=== PATIENT | female | born 1995 | race Caucasian/White ===

== ENCOUNTER 2017-06-10 11:05 | Emergency (ER) | payer MEDICAID ==
[~2017-06-10] VITALS: Ht 170.2 cm; Wt 99.2 kg
[~2017-06-10 11:05] MED LIST: ONDA4TAB6 PO; PANT-47 PO; POTA20TA19 PO; PROC-8
[2017-06-10] MEDS ORDERED: ketorolac trometh inj. 60 MG/2 ML VIAL IM ONE (12:15)
[2017-06-10] MEDS ORDERED: IBUP-1985 PO (12:24)
[2017-06-10 13:28] VITALS: BP 125/65
== END 2017-06-10 13:30 | disposition home or self-care (01) ==
LOC: ER 11:06
DX: S62.395A Other fracture of fourth metacarpal bone, left hand, initial encounter for closed fracture (principal); F12.10 Cannabis abuse, uncomplicated; Z88.0 Allergy status to penicillin; Z88.8 Allergy status to other drugs, medicaments and biological substances; W01.198A Fall on same level from slipping, tripping and stumbling with subsequent striking against other object, initial encounter; Y93.01 Activity, walking, marching and hiking; Y92.89 Other specified places as the place of occurrence of the external cause; Y99.8 Other external cause status
CPT/HCPCS: 29125; 73130; 96372; 99284; A4565; A6449; J1885

== ENCOUNTER 2017-06-17 13:14 | Outpatient (CLI) | payer MEDICAID ==
[~2017-06-17 13:14] MED LIST changes: +IBUP-1985 PO
[2017-06-17 13:18] VITALS: BP 123/85
== END 2017-06-17 14:00 | disposition home or self-care (01) ==
LOC: ORTHO 13:14
PROVIDERS: ATTEND Nurse Practitioner Family
DX: S62.355A Nondisplaced fracture of shaft of fourth metacarpal bone, left hand, initial encounter for closed fracture (principal); Z88.0 Allergy status to penicillin; Z88.3 Allergy status to other anti-infective agents; X58.XXXA Exposure to other specified factors, initial encounter; Y93.89 Activity, other specified; Y92.89 Other specified places as the place of occurrence of the external cause; Y99.8 Other external cause status
CPT/HCPCS: 29125; 73130; 99213

== ENCOUNTER 2017-07-14 14:34 | Outpatient (CLI) | payer MEDICAID ==
[2017-07-14 14:40] VITALS: BP 119/69
== END 2017-07-14 15:00 | disposition home or self-care (01) ==
LOC: ORTHO 14:34
PROVIDERS: ATTEND Nurse Practitioner Family
DX: S62.355D Nondisplaced fracture of shaft of fourth metacarpal bone, left hand, subsequent encounter for fracture with routine healing (principal); F17.210 Nicotine dependence, cigarettes, uncomplicated; Z88.0 Allergy status to penicillin; Z88.5 Allergy status to narcotic agent; X58.XXXD Exposure to other specified factors, subsequent encounter
CPT/HCPCS: 29260; 73130; 99213

== ENCOUNTER 2018-06-27 10:23 | Emergency (ER) | payer MEDICAID ==
[~2018-06-27] VITALS: Ht 170.2 cm; Wt 103.0 kg
[2018-06-27 11:21] LABS: BASOPHILS % (AUTO) 0.4 % (0-1); EOSINOPHILS # (AUTO) 0.1 X10'3 (0-0.9); EOSINOPHILS % (AUTO) 0.5 % (0-6); HEMATOCRIT 42.5 % (35.0-45.0); HEMOGLOBIN 14.2 g/dl (12.0-16.0); LYMPHOCYTES # (AUTO) 1.5 X10'3 (1.1-4.8); LYMPHOCYTES % (AUTO) 11.9 % (21-51); MEAN CORPUSCULAR HEMOGLOBIN 28.9 PG (27.0-31.0); MEAN CORPUSCULAR HGB CONC 33.4 g/dL (33.0-36.5); MEAN CORPUSCULAR VOLUME 86.5 FL (78-98); MEAN PLATELET VOLUME 7.4 FL (7.4-10.4); MONOCYTES # (AUTO) 0.5 X10'3 (0-0.9); MONOCYTES % (AUTO) 3.9 % (2-12); NEUTROPHILS # (AUTO) 10.3 X10'3 (1.8-7.7); NEUTROPHILS % (AUTO) 83.3 % (42-75); PLATELET COUNT 312 X10'3 (140-440); RED BLOOD COUNT 4.92 X10'6 (4.20-5.60); RED CELL DISTRIBUTION WIDTH 13.3 % (11.5-14.5); WHITE BLOOD COUNT 12.4 X10'3 (4.5-11.0)
[2018-06-27 11:24] LABS: CLARITY,URINE SLIGHTLY CLOUDY (Clear); COLOR,URINE YELLOW (Yellow); GLUCOSE, URINE NEGATIVE (Neg); KETONES,URINE NEGATIVE (Neg); LEUKOCYTE ESTERASE ,URINE TRACE (Neg); NITRITES, URINE NEGATIVE (Neg); OCCULT BLOOD,URINE TRACE-INTACT (Neg); PH,URINE 5.5 (4.8-8.0); PROTEIN,URINE NEGATIVE (Neg); UROBILINOGEN,URINE 0.2 E.U/dL (0.2-1.0)
[2018-06-27 11:26] LABS: URINE HCG NEGATIVE (NEG)
[2018-06-27 11:31] LABS: MUCUS STRANDS MANY /LPF (Neg); SQUAMOUS EPITHELIAL CELL,UR MANY /LPF (FEW); UA COLLECTION TYPE CLN CATCH MIDSTREAM
[2018-06-27 11:32] LABS: BACTERIA,URINE 1+ /HPF (Neg); RBC,URINE 0-2 /HPF (0-2); WBC,URINE 0-4 /HPF (0-4)
[2018-06-27 11:40] LABS: ALANINE AMINOTRANSFERASE 89 U/L (12-78); ALKALINE PHOSPHATASE 119 IU/L (46-116); ANION GAP 5 (8-16); ASPARTATE AMINO TRANSFERASE 35 U/L (10-37); BILIRUBIN,TOTAL 0.3 MG/DL (0.1-1.0); BLOOD UREA NITROGEN 9 MG/DL (7-18); BUN/CREATININE RATIO 10.6 (6.6-38.0); CHLORIDE 105 MMOL/L (99-107); CREATININE 0.85 MG/DL (0.40-0.90); GLUCOSE 109 MG/DL (70-104); LIPASE 99 U/L (73-393); POTASSIUM 4.6 MMOL/L (3.5-5.1); SODIUM 138 MMOL/L (135-145); TOTAL CARBON DIOXIDE 27.6 MMOL/L (24-32); TOTAL PROTEIN 8.2 G/DL (6.4-8.2); eGFR 82 ML/MIN
[2018-06-27] MEDS ORDERED: DICY10CA88 PO (12:39)
[2018-06-27 13:12] VITALS: BP 114/72
== END 2018-06-27 13:14 | disposition home or self-care (01) ==
LOC: ER 10:23
DX: R10.30 Lower abdominal pain, unspecified (principal); R19.7 Diarrhea, unspecified; R11.10 Vomiting, unspecified; Z87.11 Personal history of peptic ulcer disease; Z88.0 Allergy status to penicillin; Z88.8 Allergy status to other drugs, medicaments and biological substances
CPT/HCPCS: 36415; 80053; 81001; 81025; 83690; 85025; 99283